=== PATIENT | male | born 1955 | race Caucasian/White ===

== ENCOUNTER 2019-12-04 01:15 | Emergency (ER) | payer MEDICARE, OTHER, SELFPAY ==
--- NOTE | 2019-12-04 01:42 | DI.CT.S_ITS ---
PROCEDURE: CT KIDNEY URETER BLADDER (KUB) INDICATIONS: acute Right flank pain TECHNIQUE: Noncontrast 5 mm thick sections acquired from the diaphragms to the symphysis. 5 mm thick coronal and sagittal reformats were then performed. For radiation dose reduction, the following was used: automated exposure control, adjustment of mA and/or kV according to patient size. COMPARISON: None. FINDINGS: Image quality: Excellent. Lung bases: Lung bases are clear. Heart size is normal. A small hiatal hernia is incidentally noted. Urinary system: Two right-sided proximal ureteral stones are seen, as on series 4, images 28 and 30. The more proximal stone measures 1 cm. The more distal stone measures 7 mm. There is associated moderate left-sided hydroureter and hydronephrosis. Mild right-sided perinephric fat stranding can also be seen. Bilateral nonobstructing kidney stones are seen. The largest stone on the right measures 5 mm. The largest stone on the left measures 3-4 mm. There is no left-sided hydronephrosis. No left-sided kidney stones are seen. Both kidneys are normal in size. Bladder wall thickness is normal; no calcified bladder stones. Other solid organs: Liver is normal in size. Low-density liver lesions are seen, which measure up to 1 cm. Gallbladder wall is not thickened. Pancreas is normal in contours. Spleen is normal in size. No adrenal nodules. Peritoneum and bowel: Unenhanced bowel loops demonstrate normal wall thickness and caliber. No free fluid or air. Nodes and vessels: No retroperitoneal or mesenteric adenopathy by size criteria. Aorta and inferior vena cava are normal in caliber. Abdominal wall: No ventral hernias. Pelvis: No free pelvic fluid. No inguinal hernias or adenopathy. Bones: No suspicious bony lesions. No vertebral body compression fractures. IMPRESSION: 2 right-sided ureteral stones are seen, with the largest measuring up to 1 cm. Associated right-sided hydroureter and hydronephrosis can be seen. Numerous nonobstructing renal stones are seen. Incidental note is made of: Small hiatal hernia Note: No significant discrepancy from the preliminary report. Dictated by: Maxim Cole M.D. on 12/04/2019 at 8:34 Approved by: Maxim Cole M.D. on 12/04/2019 at 8:37
--- NOTE | 2019-12-04 01:43 | ED_ITS ---
HPI - Abdominal Pain General Chief Complaint: Back Pain/Injury Stated Complaint: thinks he has kidney stone Time Seen by Provider: 12/04/19 01:31 History of Present Illness HPI narrative: 64-year-old gentleman with a history of 2 prior renal stones and otherwise healthy presents with 3 days of increasing right flank radiating to the lower abdomen pain. He is concerned he has a another kidney stone. He denies any fevers, cough, chills, chest pain, nausea, vomiting, diarrhea. He has not noticed any gross blood in his urine. He has no specific dysuria. Related Data Previous Rx's Medication Instructions Recorded oxycodone-acetaminophen 1 tab PO Q6H PRN #14 tab 12/04/19 tamsulosin 0.4 mg PO DAILY #30 cap 12/04/19 Review of Systems Review of Systems Narrative: Pertinent positive and negative findings as per HPI Remainder of review of systems is otherwise unremarkable for Constitutional: Fevers, chills, weakness ENT: No sore throat, neck pain, ear pain CV: Chest pain, palpitations, dyspnea on exertion Respiratory: Cough, wheeze, dyspnea MS: Muscle weakness, numbness, joint swelling or warmth Skin: Rashes, nonhealing lesions Neuro: Syncope, dizziness, tingling Patient History Medical History (Updated 12/04/19 @ 03:12 by Sravanthi Barber MD) Kidney stones (Acute) Exam Narrative Exam Narrative: General: Healthy appearing, in moderate distress secondary to pain. Able to give a complete and coherent history. Well-nourished well-deve loped HEENT: Moist mucous membranes, normal sclera with reactive pupils, Neck: No JVD, supple Respiratory: Lungs are clear to auscultation, no wheezing no rales no rhonchi. Full and symmetrical air movement Cardiac: Regular rate and rhythm no murmurs no bruits Abdomen: Diffuse guarding secondary to pain with right flank pain, good bowel tones, Skin: Warm and dry, no rashes Neurologic: Grossly neurologically intact with no obvious asymmetries or abnormalities Extremities: No trauma, well perfused Psych: Cooperative, appropriate insight and affect Initial Vital Signs Initial Vital Signs: Vital Signs Temperature 97.3 F L 12/04/19 01:57 Pulse Rate 86 12/04/19 01:57 Respiratory Rate 16 12/04/19 01:57 Blood Pressure 174/97 H 12/04/19 01:57 Pulse Oximetry 97 12/04/19 01:57 Course Orders Ordered: ED Orders 12/04/19 01:42 CT kidney ureter bladder (KUB) Stat 12/04/19 01:44 Complete Blood Count AUTO DIFF Stat Comprehensive Metabolic Panel Stat Lipase Stat Urinalysis and Microscopic Stat Discontinued Medications Sodium Chloride (Normal Saline 0.9%) 1,000 mls @ 1,000 mls/hr IV BOLUS ONE Stop: 12/04/19 02:41 Last Admin: 12/04/19 02:05 Dose: 1,000 mls/hr Documented by: LINA Ketorolac Tromethamine (Toradol) 15 mg IV NOW ONE Stop: 12/04/19 01:43 Last Admin: 12/04/19 02:05 Dose: 15 mg Documented by: LINA Oxycodone/Acetaminophen (Percocet 5/325) 1 tab PO NOW ONE Stop: 12/04/19 03:09 Oxycodone/Acetaminophen (Endocet 5/325 Prepack) 1 bottle MISC SEEINSTR ONE Stop: 12/04/19 03:09 Tamsulosin HCl (Flomax) 0.4 mg PO NOW ONE Stop: 12/04/19 03:10 Vital Signs Vital signs: Vital Signs - 8 hr 12/04/19 01:57 12/04/19 02:02 12/04/19 02:30 Temperature 97.3 F L Pulse Rate 86 93 H 74 Respiratory Rate 16 36 H 28 H Blood Pressure 174/97 H Pulse Oximetry 97 99 12/04/19 02:59 12/04/19 03:00 Temperature Pulse Rate 89 86 Respiratory Rate 19 18 Blood Pressure 152/80 H Pulse Oximetry 93 98 MDM - Abdominal Pain Medical Records Attestation: I reviewed the patient's medical records. Lab Data Attestation: I reviewed the patient's lab results. Result diagrams: 12/04/19 01:44 12/04/19 01:44 Labs: Lab Results 12/04/19 12/04/19 12/04/19 Range/Units 01:44 01:44 01:44 WBC 11.5 H (4.5-11.0) X10^3/uL RBC 5.20 (4.5-5.9) X10^6/uL Hgb 15.3 (13.5-17.5) g/dL Hct 46.2 (41-53) % MCV 88.9 (80-100) fL MCH 29.4 (26-34) PG MCHC 33.1 (30-36) % RDW 13.6 (11.6-14.8) % Plt Count 270 (150-400) X10^3/uL Neut % (Auto) 76.3 H (50-75) % Lymph % (Auto) 15.6 L (25-40) % [place] % (Auto) 6.2 (3-14) % Eos % (Auto) 1.0 L (2-4) % Baso % (Auto) 0.9 (0-2) % Neut # (Auto) 8800 H (8773-0752) /uL Lymph # (Auto) 1800 (1483-8585) /uL [place] # (Auto) 700 (0-900) /uL Eos # (Auto) 100 (0-450) /uL Baso # (Auto) 100 (0-100) /uL Sodium 139 (137-145) mmol/L Potassium 4.2 (3.4-5.1) mmol/L Chloride 105 (98-107) mmol/L Carbon Dioxide 27 (22-32) mmol/L BUN 31 H (9-20) mg/dL Creatinine 1.05 (0.66-1.25) mg/dL Estimated GFR > 60.0 (>60) mL/min BUN/Creatinine Ratio 29.5 H (6-22) Glucose 102 (80-110) mg/dL Calcium 9.5 (8.4-10.2) mg/dL Total Bilirubin 0.6 (0.2-1.3) mg/dL AST 30 (17-59) IU/L ALT 23 (<50) IU/L Alkaline Phosphatase 52 (38-126) U/L Total Protein 6.8 (6.3-8.2) g/dL Albumin 4.3 (3.5-5.0) g/dL Globulin 2.5 (1.7-4.1) g/dL Albumin/Globulin Ratio 1.7 (1.0-2.8) Lipase 229 (23-300) U/L Urine Color Yellow Urine Appearance Clear Urine pH 5.0 (4.5-8.0) Ur Specific [place] 1.025 (1.000-1.035) Urine Protein Trace H (Negative) Urine Glucose (UA) Negative (Negative) g/dL Urine Ketones 1+ H (NEGATIVE) Urine Occult Blood 3+ H (Negative) Urine Nitrate Negative (Negative) Urine Bilirubin Negative (NEGATIVE) Urine Urobilinogen 0.2 (0.2) E.U./dL Ur Leukocyte Esterase Negative (NEGATIVE) Urine RBC 10-30/hpf H (0-5/HPF) Urine WBC 0-1/hpf (0-5/HPF) Urine Bacteria None seen (None) Ur Culture Indicated? Cult not indicated MDM Narrative Medical decision making narrative: 64-year-old gentleman with a history of renal stones presents with right flank pain and to right ureteral stones the largest 10 x 7 mm. Pain has been controlled with Toradol and Zofran. No evidence of acute infection or renal failure at this time. Will switch to oral pain medication as well as tamsulosin and discharge patient home with adequate pain control. He has been seen by [facility] in the past and I will ask him to follow-up with them on Thursday for definitive care of his to right obstructing ureteral stones. He is safe for home discharge Discharge Plan Departure Patient Disposition: Home Clinical Impression: Calculus, ureteral, Kidney stones Instructions: DI for Kidney Stones Activity Restrictions/Additional Instructions: Thank you for coming in today You have not one, but two large stones in your right ureter. We will able to get your pain adequately controlled in the emergency department. There is no evidence of acute infection in your urine or your kidney. You do not show signs of acute renal failure. It is safe to go home at this time. I am going to give you a prescription for medicine called tamsulosin, to help the ureter expand a bit. Using 400 mg of ibuprofen (2 [id number] pills) and 1 Tylenol every 6 hours can be very helpful in controlling pain. For severe pain you can use 1-2 Percocet alone or in combination with the ibuprofen If you have increasing pain that cannot be controlled with your Percocet at home, developed fevers or chills or new symptoms of abdominal pain it is important that you return for additional evaluation. As you have been seen at [facility] in the past, please give their office a call on Thursday to let them know that you were seen in the emergency room, have 2 large obstructing kidney stones on the right side and schedule an appointment for follow-up and definitive care of these stones. I hope you feel better Prescriptions: New tamsulosin 0.4 mg capsule 0.4 mg PO DAILY Qty: 30 RF: 0 oxycodone-acetaminophen 5-325 mg tablet 1 tab PO Q6H PRN (Reason: pain) Qty: 14 RF: 0
[2019-12-04 01:57] VITALS: BP 174/97; PULSE 86; RESP 16; TEMP 36.3; O2SAT 97; BMI 21.7
[2019-12-04 01:58] LABS: Add Manual Diff / Slide Review NO; Basophils Absolute Auto 100 /uL (0-100); Basophils Percent Auto 0.9 % (0-2); Eosinophils Absolute Auto 100 /uL (0-450); Hematocrit 46.2 % (41-53); Hemoglobin 15.3 g/dL (13.5-17.5); Lymphocytes Absolute Auto 1800 /uL (1100-4500); Lymphocytes Percent Auto 15.6 % (25-40); Mean Corpuscular HGB Conc 33.1 % (30-36); Mean Corpuscular Hemoglobin 29.4 PG (26-34); Mean Corpuscular Volume 88.9 fL (80-100); Monocytes Absolute Auto 700 /uL (0-900); Monocytes Percent Auto 6.2 % (3-14); Neutrophils Absolute Auto 8800 /uL (1500-7000); Neutrophils Percent Auto 76.3 % (50-75); Platelet Count 270 X10^3/uL (150-400); Red Cell Distribution Width 13.6 % (11.6-14.8); White Blood Cell Count 11.5 X10^3/uL (4.5-11.0)
[2019-12-04 02:02] VITALS: PULSE 93; RESP 36
[2019-12-04 02:02] LABS: Alanine Aminotransferase 23 IU/L (<50); Albumin 4.3 g/dL (3.5-5.0); Albumin Globulin Ratio 1.7 (1.0-2.8); Alkaline Phosphatase 52 U/L (38-126); Aspartate Aminotransferase 30 IU/L (17-59); BUN Creatinine Ratio 29.5 (6-22); Bacteria Urine None Seen; Bilirubin Total 0.6 mg/dL (0.2-1.3); Blood Urea Nitrogen 31 mg/dL (9-20); Calcium 9.5 mg/dL (8.4-10.2); Carbon Dioxide 27 mmol/L (22-32); Chloride 105 mmol/L (98-107); Estimated Glomerular Filt Rate > 60.0 mL/min (>60); Globulin 2.5 g/dL (1.7-4.1); Glucose 102 mg/dL (80-110); HEMOLYSIS < 15 (0-50); Lipase 229 U/L (23-300); Potassium 4.2 mmol/L (3.4-5.1); Sodium 139 mmol/L (137-145); Total Protein 6.8 g/dL (6.3-8.2)
[2019-12-04 02:04] LABS: Appearance Urine UA CLEAR; Bilirubin Urine UA NEGATIVE (NEGATIVE); Color Urine UA YELLOW; Glucose Urine UA NEGATIVE (Negative); Ketones Urine UA 1+ (NEGATIVE); Leukocyte Esterase Urine UA NEGATIVE (NEGATIVE); Nitrite Urine UA NEGATIVE (Negative); Occult Blood Urine UA 3+ (Negative); Protein Urine UA TRACE (Negative); Specific Gravity Urine UA 1.025 (1.000-1.035); Urobilinogen Urine UA 0.2 E.U./dL (0.2)
[2019-12-04] MEDS: KETOROLAC 60 MG/2 ML VIAL 15 MG IV (02:05)
[2019-12-04] MEDS: SODIUM CHLORIDE 0.9% 1,000 ML 1000 ML IV (02:05)
[2019-12-04] MEDS: ONDANSETRON 4 MG/2 ML INJ (02:05)
[2019-12-04 02:14] LABS: Culture Indicated Urine Cult Not Indicated; RBC Urine 10-30/HPF (0-5/HPF); WBC Urine 0-1/HPF (0-5/HPF)
[2019-12-04 02:30] VITALS: PULSE 74; RESP 28; O2SAT 99
[2019-12-04 02:59] VITALS: BP 152/80; PULSE 89; RESP 19; O2SAT 93
[2019-12-04 03:00] VITALS: PULSE 86; RESP 18; O2SAT 98
[2019-12-04] MEDS: OXYCODONE/ACETAMINOPHEN 5/325 TABLET 1 TAB PO (03:23)
[2019-12-04] MEDS: TAMSULOSIN 0.4 MG CAPSULE PO (03:23)
[2019-12-04] MEDS: OXYCODONE/APAP 5/325 PREPACK 1 BOTTLE MISC (03:23)
--- NOTE | 2019-12-04 03:44 | PC.NURSE ---
Pt c/o R flank and back pain rad to groin. h/o kidney stones 10 years ago. +NV. denies diarrhea
== END 2019-12-04 03:31 | disposition home or self-care (01) ==
PROVIDERS: Emergency Provider Emergency Medicine
DX: N20.1 Calculus of ureter (principal); N20.0 Calculus of kidney; Z87.442 Personal history of urinary calculi
CPT/HCPCS: 36415; 74176; 80053; 81001; 83690; 85025; 96361; 96374; 96375; 99284; J1885; J2405

== ENCOUNTER 2023-03-16 09:50 | Emergency (ER) | payer MEDICARE, OTHER, SELFPAY ==
[2023-03-16] VITALS (7 sets, daily range): BP systolic 156–178; BP diastolic 89–103; PULSE 75–84; RESP 17–42; TEMP 36.4; O2SAT 98–100; BMI 22.3
--- NOTE | 2023-03-16 10:28 | DI.CT.S_ITS ---
PROCEDURE: CT ABDOMEN PELVIS WO CON INDICATIONS: Left FLANK PAIN, HX STONES TECHNIQUE: Axial sections were acquired from the lung bases to the pubic symphysis. Coronal and sagittal reformats were performed. For radiation dose reduction, the following was used: automated exposure control, adjustment of mA and/or kV according to patient size. COMPARISON: [facility], CT, CT KIDNEY URETER BLADDER (KUB), 12/04/2019, 1:40. FINDINGS: Image quality: Excellent. Lung bases: Unremarkable. Heart: No significant findings. URINARY: Right Kidney: No stones or hydronephrosis. Right Ureter: No hydroureter. Left Kidney: There are 6 tiny stones, largest of which measures 3 mm. Very mild hydronephrosis. Left Ureter: Mild ureteral prominence down to the base of the bladder. A 4 mm stone has just passed into the bladder. Bladder: Normal wall thickness. Recent passage of a 4 mm stone from the left ureter into the bladder. ABDOMEN: Liver: Unremarkable. Gallbladder: Unremarkable. Biliary ducts: Unremarkable. Pancreas: Unremarkable. Spleen: Unremarkable. Adrenal Glands: Unremarkable. Stomach and Bowel: Stomach, small bowel loops, and colon are unremarkable. Peritoneum: No abnormal intraperitoneal fluid. No free air. Ventral Wall: No hernia. Abdominal Nodes: No enlarged retroperitoneal or mesenteric lymph nodes. Vessels: Aorta and inferior vena cava are normal in size. PELVIS: Pelvic Organs: Moderate prostatomegaly. And. Pelvic Nodes: Unremarkable. Miscellaneous: No inguinal hernias are seen. Bones: Unremarkable. IMPRESSION: 1. A 4 mm stone has recently passed from the left ureter into the left base of bladder. There is minimal residual left hydronephrosis. 2. Multiple tiny residual left renal stones. Dictated by: Vivek Casiano M.D. on 03/16/2023 at 11:21 Approved by: Vivek Casiano M.D. on 03/16/2023 at 11:33
--- NOTE | 2023-03-16 10:39 | ED_ITS ---
HPI - Male Genitourinary General Chief complaint: Abdominal Pain Stated complaint: poss kidney stone Time Seen by Provider: 03/16/23 09:53 Source: patient and family Mode of arrival: Ambulatory History of Present Illness HPI Narrative: 68-year-old male with history of hypothyroidism presents for left-sided abdominal pain that he believes may be a kidney stone. Reports history of kidney stones, last stone was approximately 3 years ago. He states in the past all of his kidney stones have required urologic intervention. No medications taken for pain prior to arrival. Also endorsing mild nausea Related Data Previous Rx's Medication Instructions Recorded oxycodone-acetaminophen 5 mg-325 1 tab PO Q6H PRN pain #14 tabs 12/04/19 mg tablet tamsulosin 0.4 mg capsule 0.4 mg PO DAILY #30 caps 12/04/19 tamsulosin 0.4 mg capsule (Flomax) 0.4 mg PO DAILY #30 caps 03/16/23 Allergies Allergy/AdvReac Type Severity Reaction Status Date / Time banana Allergy Verified 03/16/23 10:29 morphine AdvReac Drowsy Verified 03/16/23 10:30 Review of Systems Review of Systems Narrative: Negative except as noted above Patient History Medical History (Updated 03/16/23 @ 12:52 by Arline Arce MD) Kidney stones alcohol intake frequency: a few times a month Alcohol type: beer and other Substance Use Type: does not use Exam Initial Vital Signs Initial Vital Signs: Vital Signs Temperature 97.5 F L 03/16/23 10:15 Pulse Rate 84 03/16/23 10:15 Respiratory Rate 18 03/16/23 10:15 Blood Pressure 178/103 H 03/16/23 10:15 Pulse Oximetry 100 03/16/23 10:15 Oxygen Delivery Method Room Air 03/16/23 10:15 Const: Awake, alert, no acute distress, nontoxic appearing Eyes: PERRL, EOMI, conjunctiva normal ENT: Atraumatic, dentition normal, mucous membranes moist Cardiac: regular rate, regular rhythm RESP: unlabored, clear bilaterally, no wheezing GI: Atraumatic, soft, nontender, nondistended, no rebound, no guarding MSK: Atraumatic, full range of motion, pulses equal Skin: Warm, Dry, intact, no rashes Neuro: AO x3, CN II-XII grossly intact, moves all extremities Psych: affect normal, mood normal, not suicidal, not homicidal Course Course Course Narrative: Well-appearing patient with pain concerning for recurrent kidney stone. Abdomen is soft, there is no CVA tenderness bilaterally, vital signs unremarkable. Labs, urine, CT scan ordered. Orders Ordered: ED Orders 03/16/23 10:20 UA Complete [Urinalysis and Microscopic] Stat 03/16/23 10:28 CT abdomen pelvis wo con Stat 03/16/23 10:50 CBC Auto Diff [Complete Blood Count AUTO DIFF] Stat CMP [Comprehensive Metabolic Panel] Stat Discontinued Medications Fentanyl (Fentanyl 100 Mcg/2 Ml Inj) 50 mcg IV NOW ONE Stop: 03/16/23 10:30 Sodium Chloride (Normal Saline 0.9%) 1,000 mls @ 1,000 mls/hr IV BOLUS ONE Stop: 03/16/23 11:27 Ondansetron HCl (Ondansetron 4 Mg/2 Ml Inj) 4 mg IV NOW ONE Stop: 03/16/23 10:29 Reevaluation(s) Reevaluation #1: Patient reassessed, resting comfortably in bed. 2+ blood in urine, kidney function normal, no elevated white blood cell count. CT of the abdomen and pelvis shows 4 mm stone in the bladder. Patient informed of lab and imaging results, he was informed that his pain will likely now resolved, but he will still need to monitor for the passage of the stone from his bladder. Patient was given urology follow up and Flomax, counseled to take Tylenol and Motrin at home as needed for pain and emphasized the need for hydration. ED return precautions discussed at bedside. Patient expressed understanding of the plan and is in agreement at this time. All questions answered at the time of discharge. Vital Signs Vital signs: Vital Signs - 8 hr 03/16/23 10:15 03/16/23 10:24 03/16/23 10:30 Temperature 97.5 F L Pulse Rate 84 77 75 Respiratory Rate 18 30 H 42 H Blood Pressure 178/103 H Pulse Oximetry 100 99 99 Oxygen Delivery Method Room Air 03/16/23 10:30 03/16/23 11:08 03/16/23 11:09 Temperature Pulse Rate 83 80 Respiratory Rate 27 H 26 H Blood Pressure 165/94 H Pulse Oximetry 99 100 Oxygen Delivery Method Room Air 03/16/23 11:09 03/16/23 11:30 03/16/23 11:30 Temperature Pulse Rate 80 Respiratory Rate 24 Blood Pressure 173/91 H 156/92 H Pulse Oximetry 98 Oxygen Delivery Method 03/16/23 12:00 03/16/23 12:00 Temperature Pulse Rate 81 Respiratory Rate 17 Blood Pressure 156/89 H Pulse Oximetry 99 Oxygen Delivery Method Room Air MDM - Male Genitourinary Lab Data 03/16/23 10:50 03/16/23 10:50 Labs: Lab Results 03/16/23 03/16/23 Range/Units 10:20 10:50 WBC 8.3 (4.5-11.0) X10^3/uL RBC 5.70 (4.5-5.9) X10^6/uL Hgb 16.7 (13.5-17.5) g/dL Hct 49.3 (41-53) % MCV 86.5 (80-100) fL MCH 29.3 (26-34) PG MCHC 33.9 (30-36) % RDW 14.1 (11.6-14.8) % Plt Count 256 (150-400) X10^3/uL Neut % (Auto) 69.0 (50-75) % Lymph % (Auto) 22.0 L (25-40) % [place] % (Auto) 7.1 (3-14) % Eos % (Auto) 1.1 L (2-4) % Baso % (Auto) 0.8 (0-2) % Neut # (Auto) 5700 (3339-8221) /uL Lymph # (Auto) 1800 (3397-0070) /uL [place] # (Auto) 600 (0-900) /uL Eos # (Auto) 100 (0-450) /uL Baso # (Auto) 100 (0-100) /uL Sodium 137 (137-145) mmol/L Potassium 3.8 (3.4-5.1) mmol/L Chloride 106 (98-107) mmol/L Carbon Dioxide 21 L (22-32) mmol/L BUN 25 H (9-20) mg/dL Creatinine 0.93 (0.66-1.25) mg/dL Estimated GFR > 60 (>60) mL/min BUN/Creatinine Ratio 26.9 H (6-22) Glucose 108 (80-110) mg/dL Calcium 10.2 (8.4-10.2) mg/dL Total Bilirubin 0.7 (0.2-1.3) mg/dL AST 33 (17-59) IU/L ALT 27 (<50) IU/L Alkaline Phosphatase 57 (38-126) U/L Total Protein 7.3 (6.3-8.2) g/dL Albumin 4.5 (3.5-5.0) g/dL Globulin 2.8 (1.7-4.1) g/dL Albumin/Globulin Ratio 1.6 (1.0-2.8) Urine Color Yellow Urine Appearance Clear Urine pH 7.5 (4.5-8.0) Ur Specific [place] 1.020 (1.000-1.035) Urine Protein Negative (Negative) Urine Glucose (UA) Negative (Negative) g/dL Urine Ketones 1+ H (NEGATIVE) Urine Occult Blood 2+ H (Negative) Urine Nitrate Negative (Negative) Urine Bilirubin Negative (NEGATIVE) Urine Urobilinogen 0.2 (0.2) E.U./dL Ur Leukocyte Esterase Negative (NEGATIVE) Urine RBC 5-10/hpf H (0-5/HPF) Urine WBC 1-5/hpf (0-5/HPF) Ur Squamous Epith Cells 5-10 /hpf H (0-5/HPF) Urine Bacteria None seen (None) Ur Culture Indicated? Cult not indicated Urine Dip Bedside Urine Glucose Negative Bedside Urine Bilirubin - Negative Bedside Urine Ketone +/- 5 Urine Specific [place] 1.010 Bedside Urine Occult Blood ++ Bedside Urine pH 7.5 Bedside Urine Protein - Negative Bedside Urine Urobilinogen - Negative Bedside Urine Nitrite - Negative Bedside Urine Leukocytes - Negative Esterase Discharge Plan Departure Patient Disposition: Home Clinical Impression: Kidney stones Instructions: DI for Kidney Stones Prescriptions: New tamsulosin [Flomax] 0.4 mg capsule 0.4 mg PO DAILY Qty: 30 0RF No Action tamsulosin 0.4 mg capsule 0.4 mg PO DAILY Qty: 30 0RF oxycodone-acetaminophen 5-325 mg tablet 1 tab PO Q6H PRN (Reason: pain) Qty: 14 0RF Referrals: Miscellaneous,MD Pastora [Primary Care Provider] - Bruno Spencer MD [Physician] - Stand Alone Forms: Patient Portal/API
--- NOTE | 2023-03-16 10:55 | PC.NURSE ---
HANS is not working correctly, IT and pharmacy aware. Pt given zofran and fentanyl per HANS order @4535.
[2023-03-16 11:00] LABS: Add Manual Diff / Slide Review NO; Basophils Absolute Auto 100 /uL (0-100); Basophils Percent Auto 0.8 % (0-2); Eosinophils Absolute Auto 100 /uL (0-450); Eosinophils Percent Auto 1.1 % (2-4); Hematocrit 49.3 % (41-53); Hemoglobin 16.7 g/dL (13.5-17.5); Lymphocytes Absolute Auto 1800 /uL (1100-4500); Mean Corpuscular HGB Conc 33.9 % (30-36); Mean Corpuscular Hemoglobin 29.3 PG (26-34); Mean Corpuscular Volume 86.5 fL (80-100); Monocytes Absolute Auto 600 /uL (0-900); Monocytes Percent Auto 7.1 % (3-14); Neutrophils Absolute Auto 5700 /uL (1500-7000); Platelet Count 256 X10^3/uL (150-400); Red Cell Distribution Width 14.1 % (11.6-14.8); White Blood Cell Count 8.3 X10^3/uL (4.5-11.0)
[2023-03-16 11:13] LABS: Alanine Aminotransferase 27 IU/L (<50); Albumin 4.5 g/dL (3.5-5.0); Albumin Globulin Ratio 1.6 (1.0-2.8); Alkaline Phosphatase 57 U/L (38-126); Aspartate Aminotransferase 33 IU/L (17-59); BUN Creatinine Ratio 26.9 (6-22); Bilirubin Total 0.7 mg/dL (0.2-1.3); Blood Urea Nitrogen 25 mg/dL (9-20); Calcium 10.2 mg/dL (8.4-10.2); Carbon Dioxide 21 mmol/L (22-32); Chloride 106 mmol/L (98-107); Estimated Glomerular Filt Rate > 60 mL/min (>60); Globulin 2.8 g/dL (1.7-4.1); Glucose 108 mg/dL (80-110); HEMOLYSIS < 15 (0-50); Potassium 3.8 mmol/L (3.4-5.1); Sodium 137 mmol/L (137-145); Total Protein 7.3 g/dL (6.3-8.2)
--- NOTE | 2023-03-16 11:25 | PC.NURSE ---
IV Normal saline bolus admin @1123
[2023-03-16 12:08] LABS: Appearance Urine UA CLEAR; Bilirubin Urine UA NEGATIVE (NEGATIVE); Color Urine UA YELLOW; Glucose Urine UA NEGATIVE (Negative); Ketones Urine UA 1+ (NEGATIVE); Leukocyte Esterase Urine UA NEGATIVE (NEGATIVE); Nitrite Urine UA NEGATIVE (Negative); Occult Blood Urine UA 2+ (Negative); Protein Urine UA NEGATIVE (Negative); Urobilinogen Urine UA 0.2 E.U./dL (0.2); pH Urine UA 7.5 (4.5-8.0)
[2023-03-16 12:25] LABS: Bacteria Urine None Seen; Culture Indicated Urine Cult Not Indicated; RBC Urine 5-10/HPF (0-5/HPF); Squamous Epithelial Cell Urine 5-10 /HPF (0-5/HPF); WBC Urine 1-5/HPF (0-5/HPF)
--- NOTE | 2023-03-16 12:25 | PC.NURSE ---
IV fluids completed @0535
== END 2023-03-16 12:29 | disposition home or self-care (01) ==
PROVIDERS: Emergency Provider Emergency Medicine
DX: N20.0 Calculus of kidney (principal)
CPT/HCPCS: 36415; 74176; 80053; 81001; 81003; 85025; 99282; 99284